=== PATIENT | female | born 1980 | race Caucasian/White ===

== ENCOUNTER 2021-11-24 22:10 | Emergency (ER) | payer MEDICAID, SELFPAY ==
[2021-11-24 22:12] VITALS: BP 180/117; PULSE 75; RESP 16; O2SAT 100; BMI 26.6
[2021-11-24 22:18] VITALS: BP 180/117; PULSE 65; RESP 16; TEMP 36.8; O2SAT 100
--- NOTE | 2021-11-24 22:36 | XRR_ITS ---
PROCEDURE INFORMATION: Exam: XR Chest Exam date and time: 11/24/2021 11:06 PM Age: 41 years old Clinical indication: Pain; Chest pressure; Additional info: Cp TECHNIQUE: Imaging protocol: XR of the chest. Views: 1 view. COMPARISON: No relevant prior studies available. FINDINGS: Lungs: No consolidation. Pleural spaces: No pleural effusion. No pneumothorax. Heart/Mediastinum: No cardiomegaly. Bones/joints: Unremarkable. XR/XR chest 1V portable [id number] IMPRESSION: No acute abnormality demonstrated.
--- NOTE | 2021-11-24 22:36 | CTR_ITS ---
PROCEDURE INFORMATION: Exam: CT Head Without Contrast Exam date and time: 11/24/2021 10:59 PM Age: 41 years old Clinical indication: Dizziness TECHNIQUE: Imaging protocol: Computed tomography of the head without contrast. Radiation optimization: All CT scans at this facility use at least one of these dose optimization techniques: automated exposure control; mA and/or kV adjustment per patient size (includes targeted exams where dose is matched to clinical indication); or iterative reconstruction. COMPARISON: No relevant prior studies available. RADIATION DOSE METRICS: Total DLP (mGy-cm): 787.51 FINDINGS: Brain: Rounded hyperdense colloid cyst at the 3rd ventricle measuring 6 mm in size series 2, image 24. No hemorrhage. No edema. Unremarkable white matter. No mass effect. Cerebral ventricles: No ventriculomegaly. Paranasal sinuses: Visualized sinuses are unremarkable. No fluid levels. Mastoid air cells: Visualized mastoid air cells are well aerated. Bones/joints: Unremarkable. No acute fracture. Soft tissues: Unremarkable. CT/CT head wo con* [id number] IMPRESSION: 1. No acute findings. 2. 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 No signs of obstructive hydrocephalus. Correlate with clinical history and consider neurologic consultation in the appropriate clinical context.
--- NOTE | 2021-11-24 22:36 | ECG_ITS ---
[facility] Test Date: 2021-11-24 Pat Name: Geovanna Davila Department: Room: Gender: Female Compliance Monitor: : 1980 Requested By: Jeffy Jacobsen Order Number: [id number] Sujatha MD: Seth Morrison M.D. Measurements Intervals [place] Rate: 66 P: 52 CA: 165 QRS: 24 QRSD: 100 T: 46 QT: 396 QTc: 417 Interpretive Statements SINUS RHYTHM No previous ECG available for comparison Electronically Signed On 11-25-2021 9:22:10 CDT by Seth Morrison M.D. [email or web address] [email or web address] regional medical centerBirch Tree Medicalprem[id number] f
--- NOTE | 2021-11-24 22:37 | ED_ITS ---
HPI - General Adult General: Chief complaint: General Medical Stated complaint: HTN Time Seen by Provider: 11/24/21 22:11 History of Present Illness: Patient is a 41-year-old female comes to the ED with multiple complaints. She reports having some chest pain, hypertension, dizziness and bilateral lower extremity swelling. Patient currently resides at [facility] and is going through alcohol detox program. Patient is been going through detox now for over 2 weeks. For the past 3 days she is had a little bit of chest tightness, dizziness, bilateral lower extremity swelling and generalized malaise. She also took her blood pressure at [facility] and its been elevated. Associated symptoms: Reports chest pain, headache(s) and malaise; Deny dyspnea, nausea, rash, palpitations or vomiting Review of Systems Const: Reports: malaise; Denies: fever(s), chills or fatigue Eyes: Denies: change in vision or eye discomfort ENMT: Denies: throat pain, odynophagia, nasal discharge or nasal congestion Card: Reports: chest pain; Denies: palpitations, edema, swelling of feet/ankles, dyspnea on exertion or orthopnea Resp: Denies: dyspnea, productive cough or non-productive cough GI: Denies: abdominal pain, nausea, vomiting, diarrhea, constipation or hematochezia : Denies: flank pain, dysuria or hematuria Musc: Denies: neck pain, back pain or extremity swelling Skin/Breast: Denies: rash or new lesions Neuro: Reports: headache(s) and dizziness; Denies: numbness in extremities or weakness in extremities [facility] ED PFSH: Medical History Alcohol abuse Hypertension Surgical History No pertinent past surgical history Physical Exam Const: COMMON NORMALS: no acute distress, patient oriented x3 and alert GENERAL APPEARANCE: cooperative and comfortable HENMT: COMMON NORMALS: normocephalic HEAD & SCALP: normocephalic MOUTH: Normal oral and palatal mucosa present THROAT: posterior oropharynx normal and uvula midline Eye: COMMON NORMALS: Equal, round and reactive pupils present, EOMs intact bilaterally and conjunctivae normal CONJUNCTIVA: Yes conjunctivae normal PUPIL: Yes Equal, round and reactive pupils present Neck/C-Spine: COMMON NORMALS: supple GENERAL: Yes normal visual inspection Resp: COMMON NORMALS: normal respiratory effort, No retractions, No use of accessory muscles and clear to auscultation bilaterally AUSCULTATION: clear to auscultation bilaterally Cardio: COMMON NORMALS: regular rate, regular rhythm, S1 normal heart sound present, S2 normal heart sound present, No gallops present (Cardio), No clicks present (Cardio), No murmurs present (Cardio) and Peripheral pulses 2+ throughout RATE: regular rate RHYTHM: regular rhythm HEART SOUNDS: S1 normal heart sound present and S2 normal heart sound present PERIPHERAL PULSES: Peripheral pulses 2+ throughout GI: COMMON NORMALS: Normal to inspection, nondistended, normoactive bowel sounds present, Soft to palpation, non-tender and no masses PALPATION: Yes Soft to palpation : COMMON NORMALS: Yes no CVA tenderness BLADDER/KIDNEY EXAM: Yes no CVA tenderness Back/Pelvis: COMMON NORMALS: no CVA tenderness Extremity: COMMON NORMALS: normal to inspection and no pedal edema Neuro: COMMON NORMALS: patient oriented x3 and moves all extremities SENSORIUM/ORIENTATION: Yes alert Skin: GENERAL SKIN EXAM: dry skin Course Vital Signs: Vital signs: Vital Signs Temperature 98.3 F 11/24/21 22:18 Pulse Rate 87 11/25/21 00:39 Respiratory Rate 16 11/25/21 00:39 Blood Pressure 144/90 11/25/21 00:39 Pulse Oximetry 97 11/25/21 00:39 [facility] - General Adult Medical Decision Making Patient is a 41-year-old female comes to the ED with multiple complaints. She is reporting some chest pain for the past 3 days, malaise and hypertension. Patient has a history of hypertension, alcohol abuse and is currently at [facility] going through alcohol detox program. Patient is currently a little over 2 weeks of sobriety. Vitals are stable. She had a couple elevated blood pressure readings here in the ED but none requiring any treatment and before discharge her blood pressure was 144/90. Exam of patient is benign and she appears in no acute distress or pain. Labs are unremarkable. Troponin negative. Chest x-ray shows no acute findings. EKG shows normal sinus rhythm with no ST segment elevation or depression seen. Patient was diagnosed with noncardiac chest pain, malaise and hypertension. Some of her symptoms likely due to going through alcohol detox program currently. She was stable for discharge home and told to follow-up with her PCP in the next week to recheck blood pressure. Return to ED precautions given. Patient understood and agreed with plan. Lab Data I reviewed the patient's lab results. : 11/24/21 21:57 11/24/21 21:57 Radiology Impressions Chest X-Ray 11/24/21 22:36 IMPRESSION: No acute abnormality demonstrated. Head CT 11/24/21 22:36 IMPRESSION: 1. No acute findings. 2. 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 No signs of obstructive hydrocephalus. Correlate with clinical history and consider neurologic consultation in the appropriate clinical context. Laboratory Results WBC 6.3 10^3/uL (4.0-10.0) 11/24/21 21:57 RBC 3.82 10^6/uL (4.1-5.3) L 11/24/21 21:57 Hgb 11.3 g/dL (11.5-15.3) L 11/24/21 21:57 Hct 35.9 % (37.0-47.0) L 11/24/21 21:57 MCV 94.0 fl (81-99) 11/24/21 21:57 MCH 29.6 pg (28.0-34.0) 11/24/21 21:57 MCHC 31.5 g/dL (30.0-36.0) 11/24/21 21:57 RDW 14.5 % (12.1-15.1) 11/24/21 21:57 Plt Count 295 10^3/cmm (130-400) 11/24/21 21:57 MPV 9.4 fL (7.4-10.4) 11/24/21 21:57 Neut % (Auto) 54.3 % 11/24/21 21:57 Lymph % (Auto) 36.7 % 11/24/21 21:57 Lyman % (Auto) 7.5 % 11/24/21 21:57 Eos % (Auto) 1.0 % 11/24/21 21:57 Baso % (Auto) 0.3 % 11/24/21 21:57 Neut # (Auto) 3.42 10^3/uL (1.8-7.7) 11/24/21 21:57 Lymph # (Auto) 2.3 10^3/uL (0.8-4.8) 11/24/21 21:57 Lyman # (Auto) 0.5 10^3/uL (0.2-0.9) 11/24/21 21:57 Eos # (Auto) 0.1 10^3/uL (0.0-0.8) 11/24/21 21:57 Baso # (Auto) 0.0 10^3/uL (0.0-0.1) 11/24/21 21:57 Nucleated RBC % (auto) 0 % 11/24/21 21:57 Nucleated RBCs # 0.0 /100WBC 11/24/21 21:57 Sodium 140 mmol/L (136-145) 11/24/21 21:57 Potassium 3.9 mmol/L (3.5-5.1) 11/24/21 21:57 Chloride 104 mmol/L (98-107) 11/24/21 21:57 Carbon Dioxide 27 mmol/L (22-29) 11/24/21 21:57 Anion Gap 12.9 (5-19) 11/24/21 21:57 BUN 11 mg/dL (6-20) 11/24/21 21:57 Creatinine 0.7 mg/dL (0.5-0.9) 11/24/21 21:57 GFR Calculation 92.2 mL/min (90-130) 11/24/21 21:57 Glucose 94 mg/dL (65-115) 11/24/21 21:57 Calculated Osmolality 289 mOsm/kg (285-295) 11/24/21 21:57 Calcium 9.3 mg/dL (8.5-10.5) 11/24/21 21:57 Total Bilirubin 0.2 mg/dL (0.15-1.2) 11/24/21 21:57 AST 24 U/L (0-32) 11/24/21 21:57 ALT 22 U/L (0-33) 11/24/21 21:57 Alkaline Phosphatase 52 IU/L (35-105) 11/24/21 21:57 Troponin T Baseline 6 ng/L (0-10) 11/24/21 21:57 Total Protein 7.5 g/dL (6.6-8.7) 11/24/21 21:57 Albumin 4.9 g/dL (3.5-5.2) 11/24/21 21:57 Globulin 2.6 g/dL (1.3-4.6) 11/24/21 21:57 Lipase 68 U/L (13-60) H 11/24/21 21:57 HCG, Qual Negative (Negative) 11/24/21 21:57 Urine Color Colorless (Yellow) 11/24/21 23:28 Urine Appearance Clear (CLEAR) 11/24/21 23:28 Urine pH 7 (5-7) 11/24/21 23:28 Ur Specific [place] 1.000 (1.005-1.030) L 11/24/21 23:28 Urine Protein Neg (Negative) 11/24/21 23:28 Urine Glucose (UA) Norm (Normal) 11/24/21 23:28 Urine Ketones Negative (Negative) 11/24/21 23:28 Urine Blood Neg (Negative) 11/24/21 23:28 Urine Nitrate Negative (Negative) 11/24/21 23:28 Urine Bilirubin Neg (Negative) 11/24/21 23:28 Urine Urobilinogen Norm mg/dL (Negative) 11/24/21 23:28 Ur Leukocyte Esterase Negative (Negative) 11/24/21 23:28 EKG Data EKG 1: EKG interpretation date: 11/24/21 Interpretation: Normal sinus rhythm, 66 bpm, no ST segment elevation or depression seen. Computer generated interpretation: Chest X-Ray 11/24/21 22:36 IMPRESSION: No acute abnormality demonstrated. Head CT 11/24/21 22:36 IMPRESSION: 1. No acute findings. 2. 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 No signs of obstructive hydrocephalus. Correlate with clinical history and consider neurologic consultation in the appropriate clinical context. Discharge Plan Discharge Patient Disposition: Home Clinical Impression: Non-cardiac chest pain, Malaise Hypertension Qualifiers: Hypertension type: unspecified Qualified Code(s): I10 - Essential (primary) hypertension Condition: Stable Discharge Orders: Discharge ED (Routine); Ordered 11/25/21 Ordered By: Jeffy Jacobsen Discharge Diet: Regular Discharge Activity: Increase activity as tolerated Activity Restrictions/Additional Instructions: Follow-up with medical provider as directed in the next week for reevaluation and to check blood pressure. Continue taking all home medications as previously prescribed. Return to the ER or your medical provider if condition worsens. Please read and understand discharge instructions. Thank you for choosing [facility] for your healthcare needs today. Please realize this is an emergency room and that we are providing you with a medical screening exam and this may not be complete and all inclusive of all the testing and or work up that you may need to determine your ailment or severity of your illness. It is very important that you follow up as instructed or that you return to the Emergency Department should you have concerns or if your condition changes or worsens in any way. Coding Level of Care Code ED Auto Radiator Specialist for Adrian Stephens Exam Comprehensive
[2021-11-24 22:44] LABS: Basophils % 0.3 %; Eosinophils # 0.1 10^3/uL (0.0-0.8); Hematocrit 35.9 % (37.0-47.0); Hemoglobin 11.3 g/dL (11.5-15.3); Lymphocytes # 2.3 10^3/uL (0.8-4.8); Lymphocytes % 36.7 %; Mean Corpuscular HGB Conc 31.5 g/dL (30.0-36.0); Mean Corpuscular Hemoglobin 29.6 pg (28.0-34.0); Mean Platelet Volume 9.4 fL (7.4-10.4); Monocytes # 0.5 10^3/uL (0.2-0.9); Monocytes % 7.5 %; Neutrophils # 3.42 10^3/uL (1.8-7.7); Neutrophils % 54.3 %; Nucleated Red Blood Cells % 0 %; Platelet Count 295 10^3/cmm (130-400); Red Blood Count 3.82 10^6/uL (4.1-5.3); Red Cell Distribution Width 14.5 % (12.1-15.1); White Blood Count 6.3 10^3/uL (4.0-10.0)
[2021-11-24 22:47] LABS: HCG, Serum Qual Negative (Negative)
[2021-11-24 22:54] LABS: Alanine Aminotransferase 22 U/L (0-33); Albumin Level 4.9 g/dL (3.5-5.2); Alkaline Phosphatase 52 IU/L (35-105); Anion Gap 12.9 (5-19); Aspartate Amino Transferase 24 U/L (0-32); Blood Urea Nitrogen 11 mg/dL (6-20); Calcium 9.3 mg/dL (8.5-10.5); Carbon Dioxide 27 mmol/L (22-29); Chloride 104 mmol/L (98-107); Globulin 2.6 g/dL (1.3-4.6); Glomerular Filtration Rate 92.2 mL/min (90-130); Glucose 94 mg/dL (65-115); Lipase 68 U/L (13-60); Osmolality Calculated 289 mOsm/kg (285-295); Potassium 3.9 mmol/L (3.5-5.1); Sodium 140 mmol/L (136-145); Total Bilirubin 0.2 mg/dL (0.15-1.2); Total Protein 7.5 g/dL (6.6-8.7)
[2021-11-24 22:56] LABS: Troponin(5th) Baseline 6 ng/L (0-10)
[2021-11-24 23:41] LABS: Add Urine Microscopic? NO; Charge for UA Resulting for Rev
[2021-11-24 23:49] LABS: Bilirubin Urine Neg (Negative); Blood Urine Neg (Negative); Glucose Urine UA Norm (Normal); Ketones Urine Negative (Negative); Leukocyte Esterase Urine Negative (Negative); Nitrate Urine Negative (Negative); Protein Urine Neg (Negative); Urine Appearance Clear (CLEAR); Urine Color Colorless (Yellow); Urobilinogen Urine Norm (Negative); pH Urine 7 (5-7)
[2021-11-25 00:39] VITALS: BP 144/90; PULSE 87; RESP 16; O2SAT 97
== END 2021-11-25 01:08 | disposition home or self-care (01) ==
PROVIDERS: Emergency Provider Physician Assistant
DX: I10 Essential (primary) hypertension (principal)
CPT/HCPCS: 70450; 71045; 80053; 81003; 83690; 84484; 84703; 85025; 93005; 99285